=== PATIENT | male | born 2000 | race Caucasian/White ===

== ENCOUNTER 2018-05-18 00:24 | Emergency (ER) | payer OTHER ==
[2018-05-18 01:05] LABS: BASOPHILS # (AUTO) 0.1 10^3/uL (0.0-0.1); BASOPHILS % (AUTO) 1.3 %; EOSINOPHILS # (AUTO) 0.3 10^3/uL (0.0-0.7); EOSINOPHILS % (AUTO) 5.1 %; LYMPHOCYTES % (AUTO) 40.9 %; MEAN CORPUSCULAR HGB CONC 35.2 g/dL (32.0-36.0); MEAN CORPUSCULAR VOLUME 87.9 fL (80.0-94.0); MEAN PLATELET VOLUME 7.1 fL (7.4-11.4); MONOCYTES # (AUTO) 0.6 10^3/uL (0.0-1.0); MONOCYTES % (AUTO) 11.6 %; NEUTROPHILS % (AUTO) 41.1 %; PLT - PLATELET COUNT 219 10^3/uL (130-450); RED BLOOD COUNT 4.18 10^6/uL (4.70-6.10); RED CELL DISTRIBUTION WIDTH 12.6 % (12.0-15.0)
[2018-05-18 01:17] LABS: ALBUMIN 4.2 g/dL (3.2-5.5); ALBUMIN/GLOBULIN RATIO 1.6 (1.0-2.2); BILIRUBIN,TOTAL 0.4 mg/dL (0.2-1.0); CALCIUM 9.2 mg/dL (8.5-10.3); CREATININE 0.8 mg/dL (0.6-1.2); TOTAL PROTEIN 6.8 g/dL (6.7-8.2)
--- NOTE | 2018-05-18 01:23 | XRAY Report ---
Reason: chest pain Procedure Date: 05/18/2018 Accession Number: [id number] / [id number] Procedure: XR - Chest 2 View X-Ray CPT Code: 81288 FULL RESULT: EXAM: CHEST RADIOGRAPHY EXAM DATE: 05/18/2018 01:16 AM. CLINICAL HISTORY: Chest pain. COMPARISON: None. TECHNIQUE: 2 views. FINDINGS: Lungs/Pleura: No focal opacities evident. No pleural effusion. No pneumothorax. Normal volumes. Mediastinum: Heart and mediastinal contours are unremarkable. Other: None. IMPRESSION: Normal 2-view chest radiography. RAD[facility]
[2018-05-18] MEDS ORDERED: DEXAMETHASONE 10 MG/ML VIAL PO STA (01:33)
[2018-05-18] MEDS ORDERED: IPRATROPIUM/ALBUTEROL 3 ML NEB INH STA (01:33)
--- NOTE | 2018-05-18 01:36 | ED Physician Documentation ---
PD HPI DYSPNEA - Stated complaint Stated Complaint: CHEST PAIN - Chief complaint Chief Complaint: Cardiac - History obtained from History obtained from: Patient, Family - History of Present Illness Timing - onset: How many weeks ago (2) Timing - onset during: Rest Timing - duration: Weeks (2) Timing - details: Gradual onset, Still present, Waxing and waning Inciting event(s): URI Improved by: Rest Worsened by: Exertion, Coughing Associated symptoms: Chest pain / discomfort, Other (dizziness and shortness of breath) Similar symptoms before: Diagnosis (bronchitis) Recently seen: Emergency Dept - Additional information Additional information: 18-year-old male complains of a 2-week history of intermittent undulating dyspnea and dizziness. He also has some pain in his left ear. He has minimal cough and he has not had fever. He has developed some anterior chest pain and feels it is hard to get a full deep breath. Review of Systems Constitutional: reports: Fatigue. denies: Fever, Chills Eyes: denies: Decreased vision Ears: reports: Ear pain Nose: reports: Congestion Throat: denies: Sore throat Cardiac: reports: Chest pain / pressure. denies: Palpitations, Pedal edema, Calf pain Respiratory: reports: Dyspnea, Cough, Wheezing GI: denies: Abdominal Pain, Nausea : denies: Dysuria, Frequency Skin: denies: Rash Musculoskeletal: denies: Neck pain, Back pain, Extremity pain Neurologic: denies: Generalized weakness, Focal weakness, Numbness PD PAST MEDICAL HISTORY - Past Medical History Past Medical History: No - Past Surgical History Past Surgical History: No - Present Medications Home Medications: Ambulatory Orders Medication Instructions Recorded Confirmed Azithromycin [Zithromax] 250 mg PO DAILY #6 tablet 05/18/18 - Allergies Allergies/Adverse Reactions: Allergies Allergy/AdvReac Type Severity Reaction Status Date / Time No Known Drug Allergies Allergy Verified 05/18/18 00:36 - Social History Does the pt smoke?: Yes Smoking Status: Former smoker Does the pt drink ETOH?: No Does the pt have substance abuse?: No - Immunizations Immunizations are current?: Yes - POLST Patient has POLST: No PD ED PE NORMAL - Vitals Vital signs reviewed: Yes (normal ) - General General: Alert and oriented X 3, No acute distress, Well developed/nourished - HEENT HEENT: Atraumatic, PERRL, EOMI, Other (The right TM is inflamed with rounding of the umbo and the left is inflammed but less involved than the right. ) - Neck Neck: Supple, no meningeal sign, No bony TTP - Cardiac Cardiac: RRR, No murmur - Respiratory Respiratory: No respiratory distress, Clear bilaterally, Other (There is chest wall tenderness that reproduces the symptoms the patient is having. ) - Abdomen Abdomen: Soft, Non tender - Back Back: No CVA TTP, No spinal TTP - Derm Derm: Normal color, Warm and dry, No rash - Extremities Extremities: No deformity, No edema - Neuro Neuro: Alert and oriented X 3, wire dropper 2-12 intact, No motor deficit, No sensory deficit, Normal speech Eye Opening: Spontaneous Motor: Obeys Commands Verbal: Oriented GCS Score: 15 - Psych Psych: Normal mood, Normal affect Results - Vitals Vitals: Vital Signs - 24 hr 05/18/18 05/18/18 05/18/18 00:25 00:30 00:40 Temperature 37.1 C 36.6 C Heart Rate 72 86 Respiratory 18 16 Rate Blood Pressure 125/73 122/68 O2 Saturation 97 99 05/18/18 05/18/18 05/18/18 00:52 01:10 01:49 Temperature 36.5 C Heart Rate 70 84 71 Respiratory 18 18 20 Rate Blood Pressure 137/68 H 113/54 L O2 Saturation 97 100 05/18/18 02:05 Temperature 36.5 C Heart Rate 88 Respiratory 17 Rate Blood Pressure 126/61 O2 Saturation 100 Oxygen O2 Source Room air - EKG (time done) 0028 Rate: Rate (enter#) (67) Ischemia: ST elevation c/w repol, Q waves Compare to prior EKG: Old EKG unavailable ( ) Computer interpretation: Agree with computer - Labs Labs: Laboratory Tests 05/18/18 05/18/18 05/18/18 01:00 01:00 01:00 WBC 5.0 RBC 4.18 L Hgb 13.0 L Hct 36.8 L MCV 87.9 MCH 31.0 MCHC 35.2 RDW 12.6 Plt Count 219 MPV 7.1 L Neut # (Auto) 2.0 Lymph # (Auto) 2.0 [place] # (Auto) 0.6 Eos # (Auto) 0.3 Baso # (Auto) 0.1 Absolute Nucleated RBC 0.00 Nucleated RBC % 0.1 Sodium 139 Potassium 3.1 L Chloride 104 Carbon Dioxide 27 Anion Gap 8.0 BUN 14 Creatinine 0.8 Estimated GFR (MDRD) 123 Glucose 104 H Calcium 9.2 Total Bilirubin 0.4 AST 26 ALT 16 Alkaline Phosphatase 74 Troponin I < 0.04 Total Protein 6.8 Albumin 4.2 Globulin 2.6 Albumin/Globulin Ratio 1.6 Lipase 16 L - Rads (name of study) 2 view chest Radiology: Prelim report reviewed (Impression: normal two-view chest radiography.), EMP read indepedently, See rad report PD MEDICAL DECISION MAKING - ED course Complexity details: reviewed results, re-evaluated patient, considered differential, d/w patient, d/w family ED course: 18-year-old male with undulating symptoms of congestion shortness of breath appears to have some subclinical asthma and is developed some chest wall fatigue. He is feeling some dizziness and appears to have inflammation in both of the TMs. He is administered dexamethasone 10 mg orally and given a DuoNeb treatment. He does have an albuterol inhaler at home that he is not been using. We will place him on a course of a azithromycin and he will use his inhaler as needed. Departure - Departure Disposition: Home, Self Care Clinical Impression: Otitis media Qualifiers: Otitis media type: suppurative Chronicity: acute Laterality: bilateral Recurrence: not specified as recurrent Spontaneous tympanic membrane rupture: without spontaneous rupture Qualified Code(s): H66.003 - Acute suppurative otitis media without spontaneous rupture of ear drum, bilateral Reactive airway disease Qualifiers: Asthma severity: mild Asthma persistence: intermittent Asthma complication type: with acute exacerbation Qualified Code(s): J45.21 - Mild intermittent asthma with (acute) exacerbation Condition: Stable Instructions: ED Reactive Airway Disease, ED Otitis Media Acute Adult Follow-Up: [facility] [Provider Group] Prescriptions: Azithromycin [Zithromax] 250 mg PO DAILY #6 tablet Discharge Date/Time: 05/18/18 02:10
[2018-05-18] MEDS ORDERED: POTASSIUM BICARB 25 MEQ TABLET PO STA (01:41)
[2018-05-18] MEDS ORDERED: CHERRY SYRUP 10 ML UDC PO ONE (01:51)
[2018-05-18 02:19] VITALS: BP 126/61
== END 2018-05-18 02:10 | disposition home or self-care (01) ==
LOC: EDUNIT# → ED 00:24
DX: H66.003 Acute suppurative otitis media without spontaneous rupture of ear drum, bilateral (principal); J45.21 Mild intermittent asthma with (acute) exacerbation; Z87.891 Personal history of nicotine dependence
CPT/HCPCS: 36415; 71046; 80053; 83690; 84484; 85025; 93005; 94640; 99283; 99284; A9270

== ENCOUNTER 2018-05-22 22:42 | Outpatient (CLI) | payer OTHER | END 2018-05-22 22:43 | disposition critical access hospital (66) | LOC: EMS 22:42 | PROVIDERS: ATTEND Surgery | DX: R07.9 Chest pain, unspecified (principal); R10.9 Unspecified abdominal pain; R68.83 Chills (without fever); R42 Dizziness and giddiness | CPT/HCPCS: A0425; A0429 ==

== ENCOUNTER 2018-06-01 09:02 | Outpatient (CLI) | payer OTHER ==
[2018-06-01 12:18] LABS: BASOPHILS % (AUTO) 0.6 %; EOSINOPHILS # (AUTO) 0.2 10^3/uL (0.0-0.7); EOSINOPHILS % (AUTO) 2.2 %; HGB - HEMOGLOBIN 14.7 g/dL (14.0-18.0); LYMPHOCYTES # (AUTO) 1.7 10^3/uL (1.5-3.5); LYMPHOCYTES % (AUTO) 21.2 %; MEAN CORPUSCULAR HEMOGLOBIN 30.9 pg (27.0-31.0); MEAN CORPUSCULAR HGB CONC 35.5 g/dL (32.0-36.0); MEAN CORPUSCULAR VOLUME 86.9 fL (80.0-94.0); MONOCYTES # (AUTO) 0.8 10^3/uL (0.0-1.0); MONOCYTES % (AUTO) 10.1 %; NEUTROPHILS # (AUTO) 5.1 10^3/uL (1.5-6.6); NEUTROPHILS % (AUTO) 65.9 %; PLT - PLATELET COUNT 272 10^3/uL (130-450); RED BLOOD COUNT 4.75 10^6/uL (4.70-6.10); RED CELL DISTRIBUTION WIDTH 12.8 % (12.0-15.0); WHITE BLOOD COUNT 7.8 x10^3/uL (4.8-10.8)
[2018-06-01 13:08] LABS: ALBUMIN 5.2 g/dL (3.2-5.5); ALKALINE PHOSPHATASE 76 IU/L (42-121); ALT ALANINE AMINOTRANSFERASE 19 IU/L (10-60); AST ASPARTATE AMINOTRANSFERASE 27 IU/L (10-42); BILIRUBIN,TOTAL 1.2 mg/dL (0.2-1.0); BUN - BLOOD UREA NITROGEN 16 mg/dL (6-20); CALCIUM 9.7 mg/dL (8.5-10.3); CARBON DIOXIDE - CO2 27 mmol/L (21-32); CHLORIDE 98 mmol/L (101-111); CHOL/HDL RATIO 1.5 (<5.0); CHOLESTEROL 144 mg/dL; CREATININE 0.8 mg/dL (0.6-1.2); GFR - MDRD 123 (>89); GLUCOSE 88 mg/dL (70-100); HDL CHOLESTEROL 93 mg/dL; LDL CHOLESTEROL,CALCULATED 38 mg/dL; LDL/HDL RATIO 0.4 (<3.6); SODIUM 134 mmol/L (135-145); TOTAL PROTEIN 7.8 g/dL (6.7-8.2); VLDL CHOLESTEROL 13 mg/dL
[2018-06-01 13:24] LABS: HEMOGLOBIN A1C 0.49 g/dL; HEMOGLOBIN A1C % 5.1 % (4.6-6.2)
== END 2018-06-01 23:59 | disposition home or self-care (01) ==
LOC: LAB.WCP 09:02
PROVIDERS: ATTEND Family Medicine
DX: R11.2 Nausea with vomiting, unspecified (principal); Z13.1 Encounter for screening for diabetes mellitus
CPT/HCPCS: 36415; 80053; 80061; 83036; 83721; 84443; 85025

== ENCOUNTER 2018-06-08 09:22 | Outpatient (CLI) | payer OTHER ==
--- NOTE | 2018-06-08 10:15 | XRAY Report ---
Reason: EPIGASTRIC DISCOMFORT Procedure Date: 06/08/2018 Accession Number: [id number] / [id number] Procedure: XR - Abdomen Acute CPT Code: FULL RESULT: EXAM: ABDOMINAL SERIES AND PA CHEST EXAM DATE: 06/08/2018 09:35 AM. CLINICAL HISTORY: Epigastric discomfort. COMPARISON: CHEST 2 VIEW 05/23/2018 1:23 AM. TECHNIQUE: 2 views abdomen and 1 view chest. FINDINGS: CHEST: Lungs/Pleura: No focal opacities. No effusion or pneumothorax. Mediastinum: Within exam limitations, cardiomediastinal contour is normal. ABDOMEN: Bowel Gas Pattern: Within normal limits. No dilated loops or abnormal fluid levels. Free Air: None. Other: None. IMPRESSION: Normal abdominal series (including 1-view chest). RAD[facility]
== END 2018-06-08 09:23 | disposition home or self-care (01) ==
LOC: DI 09:22
PROVIDERS: ATTEND Family Medicine
DX: R10.13 Epigastric pain (principal)
CPT/HCPCS: 74022

== ENCOUNTER 2018-08-24 14:10 | Emergency (ER) | payer OTHER ==
[2018-08-24 14:16] VITALS: BP 131/77
--- NOTE | 2018-08-24 14:51 | ED Physician Documentation ---
PD HPI UPPER EXT INJURY - Stated complaint Stated Complaint: LT HAND LAC - Chief complaint Chief Complaint: Laceration - History obtained from History obtained from: Patient - History of Present Illness Location: Left, Hand (thenar area) Type of injury: Laceration (he was shucking an oyster at work and the knife slipped and punctured into the left thenar area. No numbness nor weakness.) Where injury occurred: Work Timing - onset: Today Timing - details: Abrupt onset Worsened by: Moving, Palpating Associated symptoms: No: Weakness, Numbness Similar symptoms before: Has not had sx before Recently seen: Not recently seen Review of Systems Skin: reports: Laceration (s) Neurologic: denies: Focal weakness, Numbness PD PAST MEDICAL HISTORY - Past Medical History Cardiovascular: None Endocrine/Autoimmune: None - Past Surgical History Past Surgical History: No - Present Medications Home Medications: Ambulatory Orders Medication Instructions Recorded Confirmed No Known Home Medications 08/24/18 08/24/18 - Allergies Allergies/Adverse Reactions: Allergies Allergy/AdvReac Type Severity Reaction Status Date / Time No Known Drug Allergies Allergy Verified 08/24/18 14:16 - Social History Does the pt smoke?: Yes Smoking Status: Current every day smoker Does the pt drink ETOH?: No Does the pt have substance abuse?: No - Immunizations Immunizations are current?: Yes - POLST Patient has POLST: No PD ED PE NORMAL - Vitals Vital signs reviewed: Yes - General General: Alert and oriented X 3, Well developed/nourished - Derm Derm: Normal color, Warm and dry - Extremities Extremities: Other (Left thenar area with a 1 and half centimeter laceration that goes to the fatty tissue. He does not have any weakness of thumb movement. There is some pain with opposition to the little finger. He has normal sensation in the finger and thumb. There is good color and capillary refill in the fingers. No obvious foreign body is seen.) - Neuro Neuro: No motor deficit, No sensory deficit Results - Vitals Vitals: Vital Signs - 24 hr 08/24/18 14:14 Temperature 37.2 C Heart Rate 74 Respiratory 18 Rate Blood Pressure 131/77 H O2 Saturation 98 Oxygen O2 Source Room air Procedures - Laceration (location) left hand thenar area Length in cm: 1.5 Wound type: Linear, Clean Neurovascular status: Sensory intact, Motor intact, Vascular intact Tendon involvement: No: Tendon Injury Anesthesia: Lidocaine 1% with epi Wound Preparation: Irrigated copiously NS, Wound explored, To the base. No: FB identified Skin layer closure: Nylon, Running, Size #-0 - enter number (4), Sutures - enter # (7) Other: Patient tolerated well, No complications, Neurovascular intact, Dressing applied, Tetanus UTD Complexity: Simple Departure - Departure Disposition: 01 Home, Self Care Clinical Impression: Hand laceration Qualifiers: Encounter type: initial encounter Foreign body presence: without foreign body Laterality: left Qualified Code(s): S61.412A - Laceration without foreign body of left hand, initial encounter Condition: Stable Record reviewed to determine appropriate education?: Yes Instructions: ED Laceration Hand Follow-Up: Bob Rausch MD [Primary Care Provider] - Comments: It is okay to wash and shower. Clean off the wound twice a day with soap and water, or peroxide and water. Apply some antibiotic ointment to it to keep it moist. Also to watch for signs of infection such as purulence, redness or increasing pain. Return to your primary care or the ER at the specified time for suture removal. Tylenol or ibuprofen if needed for pains. Suture removal 8-10 days. Discharge Date/Time: 08/24/18 15:15
[2018-08-24] MEDS ORDERED: BACITRACIN OINT TOP ONE (15:43)
== END 2018-08-24 15:15 | disposition home or self-care (01) ==
LOC: ED 14:10
DX: S61.412A Laceration without foreign body of left hand, initial encounter (principal); W26.0XXA Contact with knife, initial encounter; Y93.G1 Activity, food preparation and clean up; Y99.0 Civilian activity done for income or pay; F17.200 Nicotine dependence, unspecified, uncomplicated
CPT/HCPCS: 1040M; 12001; 99282; A9270

== ENCOUNTER 2018-09-11 12:37 | Outpatient (CLI) | payer OTHER | END 2018-09-11 12:38 | disposition critical access hospital (66) | LOC: EMS 12:37 | PROVIDERS: ATTEND Surgery | DX: R07.89 Other chest pain (principal); R20.2 Paresthesia of skin; R42 Dizziness and giddiness | CPT/HCPCS: A0425; A0429 ==

== ENCOUNTER 2018-09-11 12:56 | Emergency (ER) | payer OTHER ==
--- NOTE | 2018-09-11 14:19 | ED Physician Documentation ---
History of Present Illness - Stated complaint Stated Complaint: SOA/ANXIETY - Chief complaint Chief Complaint: Cardiac - History obtained from History obtained from: Patient, EMS - History of Present Illness Timing: Today Pain level max: 0 Pain level now: 0 Improved by: Nothing Worsened by: Nothing - Additonal information Additional information: 18-year-old male presents to the emergency department stating that he felt chest tightness and hand tingling after taking 3 scoops of a pre-workout powder. The pre-workout powder has 155 mg of caffeine per scoop. He took it in approximately 16 ounces of water. Symptoms started soon after. Now feeling better Review of Systems Constitutional: denies: Fever Ears: denies: Ear pain Nose: denies: Rhinorrhea / runny nose, Congestion Throat: denies: Sore throat GI: denies: Nausea, Vomiting Skin: denies: Rash Musculoskeletal: denies: Neck pain, Back pain Neurologic: denies: Focal weakness, Numbness, Headache PD PAST MEDICAL HISTORY - Past Medical History Cardiovascular: None Endocrine/Autoimmune: None - Past Surgical History Past Surgical History: No - Present Medications Home Medications: Ambulatory Orders Medication Instructions Recorded Confirmed No Known Home Medications 08/24/18 08/24/18 - Allergies Allergies/Adverse Reactions: Allergies Allergy/AdvReac Type Severity Reaction Status Date / Time No Known Drug Allergies Allergy Verified 09/11/18 13:05 - Social History Does the pt smoke?: Yes Smoking Status: Current every day smoker Does the pt drink ETOH?: No Does the pt have substance abuse?: No - Immunizations Immunizations are current?: Yes - POLST Patient has POLST: No PD ED PE NORMAL - Vitals Vital signs reviewed: Yes - General General: Alert and oriented X 3, No acute distress, Well developed/nourished - HEENT HEENT: PERRL, Moist mucous membranes - Neck Neck: Supple, no meningeal sign - Cardiac Cardiac: RRR, Strong equal pulses - Respiratory Respiratory: No respiratory distress, Clear bilaterally - Abdomen Abdomen: Soft, Non tender, Non distended - Derm Derm: Warm and dry - Extremities Extremities: No edema, No calf tenderness / cord - Neuro Neuro: Alert and oriented X 3 - Psych Psych: Normal mood, Normal affect Results - Vitals Vitals: Vital Signs - 24 hr 09/11/18 14:32 Heart Rate 64 Respiratory 18 Rate Blood Pressure 118/92 H O2 Saturation 100 Oxygen O2 Source Room air - EKG (time done) 1305 Rate: Rate (enter#) (54) Rhythm: NSR [place]: Normal Intervals: Normal [place] Ischemia: ST elevation c/w repol PD MEDICAL DECISION MAKING - ED course Complexity details: reviewed results, re-evaluated patient, considered differential (No ST elevation [place], no aortic dissection, no PE, no tension pneumothorax, no aortic aneurysm), d/w patient ED course: 18-year-old male presents to the emergency department with what appears to be a mild caffeine overdose. Symptoms were nearly resolving by the time he came to the emergency department. Ingested approximately 450 mg of caffeine. Patient counseled regarding signs and symptoms for which I believe and urgent re- evaluation would be necessary. Patient with good understanding of and agreement to plan and is comfortable going home at this time This document was made in part using voice recognition software. While efforts are made to proofread this document, sound alike and grammatical errors may occ ur. No changes on EKG or personnel monitor. No arrhythmias. Departure - Departure Disposition: 01 Home, Self Care Clinical Impression: Caffeine use Condition: Good Instructions: Heart Palpitations Follow-Up: Bob Rausch MD [Primary Care Provider] - As Needed Comments: Return if you worsen. Avoid taking more than 1 scoop of your workout powder as it has a large amount of caffeine in it. Discharge Date/Time: 09/11/18 14:37
[2018-09-11 14:36] VITALS: BP 118/92
== END 2018-09-11 14:37 | disposition home or self-care (01) ==
LOC: EDUNIT# → ED 12:56
DX: F15.90 Other stimulant use, unspecified, uncomplicated (principal); F17.200 Nicotine dependence, unspecified, uncomplicated
CPT/HCPCS: 93005; 99283

== ENCOUNTER 2020-11-09 11:08 | Outpatient (CLI) | payer OTHER | END 2020-11-09 23:59 | disposition home or self-care (01) | LOC: LAB.N 11:08 | PROVIDERS: ATTEND Family Medicine | DX: J02.9 Acute pharyngitis, unspecified (principal); Z20.822 Contact with and (suspected) exposure to COVID-19 | CPT/HCPCS: 87070; 87077 ==

== ENCOUNTER 2021-02-22 08:20 | Emergency (ER) | payer OTHER ==
[2021-02-22 08:26] VITALS: BP 128/84
--- NOTE | 2021-02-22 08:35 | ED Physician Documentation ---
PD HPI UPPER EXT INJURY - Stated complaint Stated Complaint: RT FINGER LAC - Chief complaint Chief Complaint: Laceration - History obtained from History obtained from: Patient (Right-handed gentleman who is up-to-date on tetanus was at work and cut his right fourth finger on a sharp edge just prior to arrival.) Review of Systems Constitutional: reports: Reviewed and negative Eyes: reports: Reviewed and negative Ears: reports: Reviewed and negative Nose: reports: Reviewed and negative Throat: reports: Reviewed and negative PD PAST MEDICAL HISTORY - Past Medical History Cardiovascular: None Endocrine/Autoimmune: None - Past Surgical History Past Surgical History: No - Present Medications Home Medications: Ambulatory Orders Medication Instructions Recorded Confirmed No Known Home Medications 08/24/18 02/22/21 - Allergies Allergies/Adverse Reactions: Allergies Allergy/AdvReac Type Severity Reaction Status Date / Time No Known Drug Allergies Allergy Verified 02/22/21 08:26 - Social History Does the pt smoke?: Yes Smoking Status: Current every day smoker Does the pt drink ETOH?: No Does the pt have substance abuse?: No - Immunizations Immunizations are current?: Yes - POLST Patient has POLST: No PD ED PE NORMAL - Vitals Vital signs reviewed: Yes - General General: Alert and oriented X 3, No acute distress - Extremities Extremities: Other (He has a 8 mm quite shallow laceration just into subcutaneous fat of the pad of the right fourth finger) - Neuro Neuro: Alert and oriented X 3, Normal speech Results - Vitals Vitals: Vital Signs - 24 hr 02/22/21 08:23 Temperature 36.8 C Heart Rate 74 Respiratory 16 Rate Blood Pressure 128/84 H O2 Saturation 96 Oxygen O2 Source Room air Procedures - Laceration (location) Right fourth finger Length in cm: 0.8 Wound type: Superficial, Into subcut fat Wound preparation: Irrigated copiously NS Skin layer closure: Dermabond Other: Tetanus UTD Departure - Departure Disposition: 01 Home, Self Care Clinical Impression: Laceration - injury Condition: Good Record reviewed to determine appropriate education?: Yes Instructions: ED Laceration Ext Skin Glue
== END 2021-02-22 08:46 | disposition home or self-care (01) ==
LOC: ED 08:20
DX: S61.214A Laceration without foreign body of right ring finger without damage to nail, initial encounter (principal); W26.8XXA Contact with other sharp object(s), not elsewhere classified, initial encounter; Y93.89 Activity, other specified; Y92.89 Other specified places as the place of occurrence of the external cause; Y99.0 Civilian activity done for income or pay; F17.200 Nicotine dependence, unspecified, uncomplicated
CPT/HCPCS: 1040M; 12001; 99281; 99282

== ENCOUNTER 2021-12-23 01:54 | Emergency (ER) | payer OTHER ==
[2021-12-23] MEDS ORDERED: BUPIVACAINE 0.5% PF 10 ML VIAL SUBQ STA (02:30)
[2021-12-23] MEDS ORDERED: MORPHINE 2 MG/ML CARPUJECT IVP STA (02:45)
[2021-12-23] MEDS ORDERED: ONDANSETRON 4 MG/2 ML VIAL IVP STA (02:45)
[2021-12-23 02:51] LABS: BASOPHILS # (AUTO) 0.1 10^3/uL (0.0-0.1); BASOPHILS % (AUTO) 1.1 %; EOSINOPHILS # (AUTO) 0.2 10^3/uL (0.0-0.7); EOSINOPHILS % (AUTO) 2.6 %; HCT - HEMATOCRIT 33.7 % (42.0-52.0); HGB - HEMOGLOBIN 11.5 g/dL (14.0-18.0); LYMPHOCYTES # (AUTO) 1.8 10^3/uL (1.5-3.5); LYMPHOCYTES % (AUTO) 27.8 %; MEAN CORPUSCULAR HEMOGLOBIN 30.4 pg (27.0-31.0); MEAN CORPUSCULAR HGB CONC 34.1 g/dL (32.0-36.0); MEAN CORPUSCULAR VOLUME 89.2 fL (80.0-94.0); MEAN PLATELET VOLUME 9.4 fL (7.4-11.4); MONOCYTES # (AUTO) 0.7 10^3/uL (0.0-1.0); MONOCYTES % (AUTO) 10.1 %; NEUTROPHILS # (AUTO) 3.8 10^3/uL (1.5-6.6); NEUTROPHILS % (AUTO) 58.2 %; PLT - PLATELET COUNT 288 10^3/uL (130-450); RED BLOOD COUNT 3.78 10^6/uL (4.70-6.10); RED CELL DISTRIBUTION WIDTH 12.2 % (12.0-15.0); WHITE BLOOD COUNT 6.5 x10^3/uL (4.8-10.8)
[2021-12-23 02:57] LABS: CALCIUM 8.7 mg/dL (8.5-10.3); CREATININE 0.8 mg/dL (0.6-1.2); POTASSIUM 3.1 mmol/L (3.5-5.0)
[2021-12-23] MEDS ORDERED: POTASSIUM CHLORIDE 20 MEQ TABLET PO STA (04:41)
[2021-12-23] MEDS ORDERED: ceFAZolin 1 GM in SODIUM CHLORIDE 0.9% MINIBAG 100 ML IV STA (04:41)
--- NOTE | 2021-12-23 04:55 | ED Physician Documentation ---
PD HPI LOWER EXT INJURY - Stated complaint Stated Complaint: L FOOT LAC - Chief complaint Chief Complaint: Laceration - History obtained from History obtained from: Patient - History of Present Illness PD HPI LOW EXT INJURY LOCATION: Left, Foot Type of injury: Laceration - Additional information Additional information: Patient is a 21-year-old male with no significant past medical history presenting for evaluation of laceration to the sole of his left foot. He was out in his backyard drinking with a friend and accidentally stepped on a machete That they used to cut wood. He was barefoot at the time.Pain is sharp. Nothing makes it better. His tetanus is up-to-date. He is not on blood thinners. She admits to alcohol use this evening as well as THC. EMS applied a pressure dressing and gave fentanyl. Review of Systems Constitutional: denies: Fever Nose: denies: Congestion Throat: denies: Sore throat Cardiac: denies: Chest pain / pressure Respiratory: denies: Dyspnea GI: denies: Abdominal Pain, Vomiting : denies: Dysuria Skin: reports: Laceration (s) Musculoskeletal: denies: Back pain Neurologic: denies: Headache, Head injury PD PAST MEDICAL HISTORY - Past Medical History Cardiovascular: None Endocrine/Autoimmune: None - Past Surgical History Past Surgical History: No - Present Medications Home Medications: Ambulatory Orders Medication Instructions Recorded Confirmed Oxycodone HCl/Acetaminophen 1 each PO Q6H PRN #10 tablet 12/23/21 [Percocet 5-325 mg Tablet] cephALEXin [Keflex] 500 mg PO Q6H #20 cap 12/23/21 - Allergies Allergies/Adverse Reactions: Allergies Allergy/AdvReac Type Severity Reaction Status Date / Time No Known Drug Allergies Allergy Verified 02/22/21 08:26 - Social History Does the pt smoke?: Yes Smoking Status: Current every day smoker Does the pt drink ETOH?: No Does the pt have substance abuse?: No - Immunizations Immunizations are current?: Yes - POLST Patient has POLST: No PD ED PE NORMAL - General General: Alert and oriented X 3, No acute distress, Well developed/nourished - HEENT HEENT: Atraumatic, Moist mucous membranes - Neck Neck: Supple, no meningeal sign - Cardiac Cardiac: RRR, No murmur, Strong equal pulses - Respiratory Respiratory: No respiratory distress, Clear bilaterally PD ED PE EXPANDED - Extremities Extremities: Pedal Pulses Present, Motor intact, Sensory intact, Vascular in tact, Tendon intact, Other (Foot is warm, well-perfused, PT and DP pulses intact, patient able to move all digits of toe And move at midfoot) Feet visual: 1 - laceration Results - Vitals Vitals: Vital Signs - 24 hr 12/23/21 12/23/21 12/23/21 02:00 04:59 06:08 Temperature 37.2 C Heart Rate 98 80 70 Respiratory 18 20 16 Rate Blood Pressure 150/95 H 128/76 106/66 O2 Saturation 98 97 95 Oxygen O2 Source Room air - Labs Labs: Laboratory Tests 12/23/21 12/23/21 12/23/21 02:37 02:37 02:37 WBC 6.5 RBC 3.78 L Hgb 11.5 L Hct 33.7 L MCV 89.2 MCH 30.4 MCHC 34.1 RDW 12.2 Plt Count 288 MPV 9.4 Neut # (Auto) 3.8 Lymph # (Auto) 1.8 [place] # (Auto) 0.7 Eos # (Auto) 0.2 Baso # (Auto) 0.1 Absolute Nucleated RBC 0.00 Nucleated RBC % 0.0 Sodium 139 Potassium 3.1 L Chloride 102 Carbon Dioxide 29 Anion Gap 8.0 BUN 10 Creatinine 0.8 Estimated GFR (MDRD) 120 Glucose 127 H Calcium 8.7 Blood Type O NEGATIVE Blood Type Recheck Antibody Screen NEGATIVE 12/23/21 12/23/21 05:49 05:49 WBC RBC Hgb 10.7 L Hct 31.4 L MCV MCH MCHC RDW Plt Count MPV Neut # (Auto) Lymph # (Auto) [place] # (Auto) Eos # (Auto) Baso # (Auto) Absolute Nucleated RBC Nucleated RBC % Sodium Potassium Chloride Carbon Dioxide Anion Gap BUN Creatinine Estimated GFR (MDRD) Glucose Calcium Blood Type Blood Type Recheck O NEGATIVE Antibody Screen Procedures - Laceration (location) Left foot Length in cm: 10 Wound type: Irregular Neurovascular status: Sensory intact, Motor intact, Other (Pulsatile bleeding from superficial artery which was Tied off with absorbable suture) Tendon involvement: Tendon intact Anesthesia: Marcaine 0.5% Wound preparation: Hibiclens, Irrigated copiously NS (Over a liter of saline was irrigated into the wound) Deep layer closure: Vicryl, size #-0 - enter number (4), # sutures - enter number (10) Skin layer closure: Interrupted (Simple interrupted And horizontal mattress sutures), Size #-0 - enter number (4), Sutures - enter # (18) Other: Patient tolerated well, No complications, Neurovascular intact, Dressing applied, Tetanus UTD PD MEDICAL DECISION MAKING - ED course Complexity details: reviewed results, re-evaluated patient ED course: Patient with large deep laceration to sole of left foot.There was pulsatile bleeding from superficial artery noted on initial evaluation so tourniquet was a pplied at the ankle.Labs obtained With hemoglobin of 11.5. Significant time spent in Cleaning And suturing the laceration. It did require a layer of deep stitches Prior to skin closure. Christopher wrap was also applied to the foot. It was reevaluated Over the course of 45 minutes with no bleeding seen. Patient continued to have normal sensation and motor in the foot with palpable pulses and foot appears well perfused. While it is swollen, compartments of the foot remain soft and not tense. As patient was barefoot in the yard prior to stepping on the machete and foot was very dirty I did give him a dose of IV Ancef. We were able to clean the wound successfully With copious irrigation and Hibiclens but I will also give him a short course of Keflex as prophylaxis. Patient aware of staying off the foot until wound is healed and need for suture removal in 10 to 14 days. Repeat hemoglobin stable. Vital signs stable. The patient is clinically sober and has a sober ride. He was also counseled on strict return precautions for any worsening symptoms. 0450 - No blood noted to Christopher wrap, pedal pulses intact, foot appears well perfused, motor and sensation grossly intact Departure - Departure Disposition: 01 Home, Self Care Clinical Impression: Laceration of left foot excluding toes Qualifiers: Encounter type: initial encounter Qualified Code(s): S91.312A - Laceration without foreign body, left foot, initial encounter Condition: Stable Instructions: ED Laceration Foot Follow-Up: Yariel,Lequire H, TIRE CARE MANAGER [Physician No Access] - Prescriptions: cephALEXin [Keflex] 500 mg PO Q6H #20 cap Oxycodone HCl/Acetaminophen [Percocet 5-325 mg Tablet] 1 each PO Q6H PRN #10 tablet PRN Reason: pain Comments: You were evaluated for a Large laceration to the bottom of your left foot. It was closed with 18 stitches to the skin.Although we took a great amount of time to clean the wound, I will start you on an antibiotic to prevent any infection. I have also sent a small amount of pain medications to use as needed. I am prescribing a short course of narcotic pain medication for you. These are potentially dangerous and addictive medications that should be used carefully. These medications may constipate you. Take an ymkw-mkx-hbbnphl stool softener (docusate) twice daily with plenty of water while taking these medications. If you go 24 hours without a bowel movement, take [id number]-[id number] miralax, per package instructions. Do not drink or drive while taking these medications. If you received narcotic or sedating medications while in the emergency department, do not drive for 24 hours. Store this medication in a safe, secure place and out of reach of children. It is a violation of federal law to give or sell this medication to another person or to use in a manner other than prescribed. The ED will not refill narcotic prescriptions, including prescriptions lost or stolen. To dispose of unwanted medications: 1. [facility] at [address] [facility] in [place] has a medication drop box. They accept prescription medications (in pill form) Friday through Friday 9:00 a.m. to 5:00 p.m. 2. [facility] [employer] accepts prescription medications (in pill form only) for disposal year round. Call for more information. 3. Contact the [facility] for the next [facility] sponsored prescription drug collection event. , [phone], or [phone]; Note that many narcotic pain relievers also contain Tylenol/acetaminophen. Please ensure that your total dose of acetaminophen from all sources does not exceed 3 g (3000 mg) per day. Please use crutches and stay off the foot until the stitches are removed. The stitches should be removed in 10 to 14 days. Please keep the current dressing on for the next 24 hours. Please make sure to elevate the foot to help with any swelling. Be very careful not to hit to the foot against anything as this may cause the wound to reopen.If you have any worsening symptoms such as increased pain, numbness, trouble moving your toes or any concerns please return to the emergency department. Forms: Activity restrictions
[2021-12-23] MEDS ORDERED: ceFAZolin 1 GM VIAL ONE (05:02)
[2021-12-23] MEDS ORDERED: oxyCODONE/ACET 5/325 Prepack 4 PO STA (05:15)
[2021-12-23 05:52] LABS: HCT - HEMATOCRIT 31.4 % (42.0-52.0); HGB - HEMOGLOBIN 10.7 g/dL (14.0-18.0)
[2021-12-23 06:25] VITALS: BP 137/76
== END 2021-12-23 06:24 | disposition home or self-care (01) ==
LOC: EDBD → ED 01:54
DX: S91.312A Laceration without foreign body, left foot, initial encounter (principal); W27.1XXA Contact with garden tool, initial encounter; Y92.007 Garden or yard of unspecified non-institutional (private) residence as the place of occurrence of the external cause; F17.200 Nicotine dependence, unspecified, uncomplicated
CPT/HCPCS: 12004; 36415; 80048; 85014; 85018; 85025; 86850; 86900; 86901; 96365; 96375; 99284; A9270

== ENCOUNTER 2023-02-17 15:00 | Emergency (ER) | payer OTHER ==
--- NOTE | 2023-02-17 16:39 | CT Report ---
PROCEDURE: HEAD WO INDICATIONS: head injury, dizzy TECHNIQUE: Noncontrast 4.5 mm thick angled axial sections acquired from the foramen magnum to the vertex. For r adiation dose reduction, the following was used: automated exposure control, adjustment of mA and/or kV according to patient size. COMPARISON: None. FINDINGS: Image quality: Excellent. CSF spaces: Basal cisterns are patent. No extra-axial fluid collections. Ventricles are normal in size and shape. Brain: No midline shift. No intracranial masses or hemorrhage. Goodrich-white matter interface is norm al. Skull and face: Calvarium and visualized facial bones are intact, without suspicious lesions. Sinuses: Mild maxillary sinus mucosal thickening bilaterally. Mastoids are clear. IMPRESSION: 1. No acute intracranial pathology. 2. Mild maxillary sinus mucosal thickening bilaterally. Reviewed by: Juan Miguel Lamb MD on 02/17/2023 4:38 PM PDT Approved by: Juan Miguel Lamb MD on 02/17/2023 4:38 PM PDT Station ID: [id number]
[2023-02-17] MEDS ORDERED: ONDANSETRON ODT 4 MG TABLET TL STA (17:02)
[2023-02-17] MEDS ORDERED: IBUPROFEN 800 MG TABLET PO STA (17:02)
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
[2023-02-17 17:15] VITALS: BP 138/82; O2SAT 99
== END 2023-02-17 17:14 | disposition home or self-care (01) ==
LOC: ED 15:00
DX: S09.90XA Unspecified injury of head, initial encounter (principal); W03.XXXA Other fall on same level due to collision with another person, initial encounter; Y92.89 Other specified places as the place of occurrence of the external cause; F17.200 Nicotine dependence, unspecified, uncomplicated
CPT/HCPCS: 70450; 99283; 99284; A9270; Q0162

== ENCOUNTER 2023-04-17 07:48 | Emergency (ER) | payer OTHER ==
[2023-04-17 08:05] VITALS: BP 121/79; O2SAT 97
[2023-04-17] MEDS ORDERED: cefTRIAXone 500 MG VIAL IM STA (08:07)
[2023-04-17] MEDS ORDERED: LIDOCAINE 1% 2 ML VIAL MC ONE (08:07)
--- NOTE | 2023-04-17 08:08 | ED Physician Documentation ---
PD HPI MALE - Stated complaint Stated Complaint: - Chief complaint Chief Complaint: Abd Pain - History obtained from History obtained from: Patient - Additional information Additional information: 23-year-old gentleman presents with 1 week worth of painful urethritis and discharge. No rash or lesion. No history of STDs. 2 partners with unprotected sex in the last 6 months. PD PAST MEDICAL HISTORY - Past Medical History Past Medical History: No Cardiovascular: None Endocrine/Autoimmune: None - Past Surgical History Past Surgical History: No - Present Medications Home Medications: Ambulatory Orders Medication Instructions Recorded Confirmed Doxycycline [Vibramycin] 100 mg PO BID #14 tablet 04/17/23 - Allergies Allergies/Adverse Reactions: Allergies Allergy/AdvReac Type Severity Reaction Status Date / Time No Known Drug Allergies Allergy Verified 04/17/23 07:58 - Social History Does the pt smoke?: Yes Smoking Status: Current every day smoker Does the pt drink ETOH?: Yes Does the pt have substance abuse?: Yes - Immunizations Immunizations are current?: Yes - POLST Patient has POLST: No PD ED PE NORMAL - Vitals Vital signs reviewed: Yes - General General: Alert and oriented X 3, No acute distress - Neuro Neuro: Alert and oriented X 3, Normal speech Results - Vitals Vitals: Vital Signs - 24 hr 04/17/23 07:55 Temperature 37.7 C Heart Rate 69 Respiratory 16 Rate Blood Pressure 121/79 O2 Saturation 97 Oxygen O2 Source Room air PD Medical Decision Making - ED course ED course: 23-year-old male with urethritis. Treated with 500 mg IM Rocephin here and 1 week of doxycycline. Departure - Departure Disposition: 01 Home, Self Care Clinical Impression: Urethritis Condition: Good Record reviewed to determine appropriate education?: Yes Instructions: ED STD Male Treated, Control Condoms Prescriptions: Doxycycline [Vibramycin] 100 mg PO BID #14 tablet Comments: I sent your prescription electronically to the [facility] in [place]. You have test for gonorrhea and chlamydia pending and we will call you with a positive result, in which case she would need to notify recent partners. Return for new or worsening symptoms. Forms: PCP List
[2023-04-17 14:44] LABS: CHLAMYDIA TRACHOMATIS DNA NEGATIVE (NEGATIVE); NEISSERIA GONORRHOEAE DNA NEGATIVE (NEGATIVE); TRICHOMONAS VAGINALIS DNA NEGATIVE (NEGATIVE)
== END 2023-04-17 08:23 | disposition home or self-care (01) ==
LOC: ED 07:48
DX: N34.2 Other urethritis (principal); F17.200 Nicotine dependence, unspecified, uncomplicated
CPT/HCPCS: 87491; 87591; 87661; 96372; 99283